=== PATIENT | male | born 1990 | race Caucasian/White ===

== ENCOUNTER 2022-06-27 10:05 | Emergency (ER) | payer OTHER ==
[~2022-06-27] VITALS: Ht 175.3 cm; Wt 109.0 kg
[2022-06-27 10:10] VITALS: BP 168/93
[2022-06-27] MEDS ORDERED: IBUP-2029 MT (10:40)
== END 2022-06-27 11:06 | disposition home or self-care (01) ==
LOC: ER 10:39
DX: S93.401A Sprain of unspecified ligament of right ankle, initial encounter (principal); W50.2XXA Accidental twist by another person, initial encounter; Y93.89 Activity, other specified; Y92.89 Other specified places as the place of occurrence of the external cause; Y99.8 Other external cause status
CPT/HCPCS: 73610; 99283

== ENCOUNTER 2022-10-03 21:29 | Emergency (ER) | payer OTHER ==
[~2022-10-03] VITALS: Ht 177.8 cm; Wt 113.0 kg
[~2022-10-03 21:29] MED LIST: IBUP-2029 MT
[2022-10-03 21:40] VITALS: TEMP 98.8; O2SAT 98
[2022-10-03 22:43] LABS: BASOPHILS % 0.8 % (0.0-2.0); HEMATOCRIT. 43.3 % (42.0-52.0); HEMOGLOBIN. 14.5 g/dL (14.0-18.0); LYMPHOCYTES % 25.9 % (20.0-50.0); MEAN CORPUSCULAR HEMOGLOBIN 29.5 pg (28.0-32.0); MEAN CORPUSCULAR VOLUME 87.7 fL (80.0-94.0); MEAN PLATELET VOLUME 7.9 fl (7.4-10.4); MONOCYTES % 8.9 % (2.0-8.0); NEUTROPHILS % 62.4 % (40.0-76.0); PLATELET 303 x1000/uL (130-400); RED BLOOD CELL COUNT 4.93 mill/uL (4.7-6.1)
[2022-10-03 22:45] LABS: CHLORIDE 101 mEq/L (98-107)
[2022-10-04] MEDS ORDERED: IBUPROFEN 400MG TABLET PO ONE (01:15)
[2022-10-04 02:43] VITALS: BP 147/96; PULSE 73; RESP 22
== END 2022-10-04 02:44 | disposition home or self-care (01) ==
LOC: ER 23:41
DX: R07.89 Other chest pain (principal); F17.210 Nicotine dependence, cigarettes, uncomplicated
CPT/HCPCS: 36415; 71045; 80053; 83880; 84484; 85025; 93005; 99285

== ENCOUNTER 2022-11-25 13:39 | Emergency (ER) | payer MEDICAID, OTHER ==
[~2022-11-25] VITALS: Ht 177.8 cm; Wt 113.4 kg
[2022-11-25 13:57] VITALS: TEMP 98.3; O2SAT 98
[2022-11-25 14:40] LABS: BASOPHILS % 0.7 % (0.0-2.0); EOSINOPHILS % 2.1 % (0.0-5.0); HEMATOCRIT. 44.4 % (42.0-52.0); HEMOGLOBIN. 15.4 g/dL (14.0-18.0); LYMPHOCYTES % 17.5 % (20.0-50.0); MEAN CORPUSCULAR HEMOGLOBIN 30.1 pg (28.0-32.0); MEAN CORPUSCULAR HGB CONC 34.7 g/dL (31.0-37.0); MONOCYTES % 6.3 % (2.0-8.0); NEUTROPHILS % 73.4 % (40.0-76.0); PLATELET 334 x1000/uL (130-400); WHITE BLOOD COUNT 10.6 x1000/uL (4.5-11.0)
[2022-11-25 15:19] LABS: CHLORIDE 105 mEq/L (98-107); INDEX HEMOLYSI 1 (1-3); INDEX ICTERIC 1 (1-4); INDEX LIPEMIC 1 (1-3); POTASSIUM 3.9 mEq/L (3.5-5.1); SODIUM 135 mEq/L (136-145)
[2022-11-25 15:28] LABS: ALANINE AMINOTRANSFERASE 112 IU/L (13-61); ALBUMIN 3.6 g/dL (3.4-5.0); ASPARTATE AMINOTRANSFERASE 65 IU/L (15-37); BILIRUBIN TOTAL 0.4 mg/dL (0.1-1.0); CALCIUM 8.5 mg/dL (8.5-10.1); CARBON DIOXIDE 30 mEq/L (21-32); CREATININE 0.8 mg/dL (0.6-1.3); GLUCOSE 96 mg/dL (70-105); PROTEIN TOTAL 8.1 g/dL (6.0-8.3); UREA NITROGEN BLOOD 8 mg/dL (7-21)
[2022-11-25 15:45] VITALS: BP 144/94; PULSE 84; RESP 16
[2022-11-25] MEDS ORDERED: IBUPROFEN 600MG TABLET PO ONE (15:45)
[2022-11-25] MEDS ORDERED: IBUP-2029 MT (16:38)
== END 2022-11-25 18:23 | disposition home or self-care (01) ==
LOC: ER 13:39
DX: R07.89 Other chest pain (principal)
CPT/HCPCS: 36415; 71045; 80053; 85025; 93005; 99285

== ENCOUNTER 2023-03-24 20:05 | Emergency (ER) | payer SELFPAY ==
[~2023-03-24] VITALS: Ht 177.8 cm; Wt 113.0 kg
[2023-03-24 20:27] VITALS: BP 144/99; PULSE 87; RESP 18; TEMP 98.7; O2SAT 98
[2023-03-24 20:59] LABS: BASOPHILS % 0.8 % (0.0-2.0); EOSINOPHILS % 2.6 % (0.0-5.0); HEMATOCRIT. 45.3 % (42.0-52.0); HEMOGLOBIN. 15.3 g/dL (14.0-18.0); LYMPHOCYTES % 24.2 % (20.0-50.0); MEAN CORPUSCULAR HEMOGLOBIN 29.8 pg (28.0-32.0); MEAN CORPUSCULAR HGB CONC 33.8 g/dL (31.0-37.0); MEAN CORPUSCULAR VOLUME 88.2 fL (80.0-94.0); MEAN PLATELET VOLUME 8.2 fl (7.4-10.4); MONOCYTES % 6.8 % (2.0-8.0); NEUTROPHILS % 65.6 % (40.0-76.0); PLATELET 275 x1000/uL (130-400); RED BLOOD CELL COUNT 5.13 mill/uL (4.7-6.1); RED CELL DISTRIBUTION WIDTH 13.1 % (11.6-14.6); WHITE BLOOD COUNT 12.2 x1000/uL (4.5-11.0)
[2023-03-24 21:06] LABS: CLARITY URINE CLEAR (CLEAR); COLOR URINE YELLOW (YELLOW); GLUCOSE URINE NEGATIVE (NEGATIVE); KETONES URINE NEGATIVE (NEGATIVE); LEUKOCYTE ESTERASE URINE NEGATIVE (NEGATIVE); NITRITE URINE NEGATIVE (NEGATIVE); OCCULT BLOOD URINE NEGATIVE (NEGATIVE); PROTEIN URINE NEGATIVE (NEGATIVE); SPECIFIC GRAVITY URINE 1.022 (1.005-1.030); UROBILINOGEN URINE 0.2 E.U./dL (0.2-1.0)
[2023-03-24 21:14] LABS: ALANINE AMINOTRANSFERASE 109 IU/L (10-49); ALBUMIN 4.4 g/dL (3.2-4.8); ASPARTATE AMINOTRANSFERASE 55 IU/L (<34); BILIRUBIN TOTAL 0.3 mg/dL (0.1-1.0); CALCIUM 9.4 mg/dL (8.7-10.4); CARBON DIOXIDE 30 mEq/L (21-32); CHLORIDE 102 mEq/L (98-107); CREATININE 0.9 mg/dL (0.6-1.3); GLUCOSE 102 mg/dL (70-105); POTASSIUM 3.6 mEq/L (3.5-5.1); PROTEIN TOTAL 8.2 g/dL (6.0-8.3); SODIUM 136 mEq/L (136-145); UREA NITROGEN BLOOD 12 mg/dL (9-23)
[2023-03-24] MEDS ORDERED: PANTOPRAZOLE 40MG DR TABLET PO ONE (21:15)
[2023-03-24] MEDS ORDERED: ACETAMINOPHEN 500MG TABLET PO ONE (21:15)
[2023-03-24] MEDS ORDERED: PANT20TA17 MT (22:18)
[2023-03-24] MEDS ORDERED: ACET-2708 MT (22:18)
[2023-03-24] MEDS ORDERED: PANTOPRAZOLE 40MG DR TABLET PO NR (23:15)
[2023-03-24] MEDS ORDERED: ACETAMINOPHEN 500MG TABLET PO NR (23:15)
== END 2023-03-24 23:23 | disposition home or self-care (01) ==
LOC: ER 20:34
DX: R10.31 Right lower quadrant pain (principal); F19.90 Other psychoactive substance use, unspecified, uncomplicated; F10.90 Alcohol use, unspecified, uncomplicated; Y90.9 Presence of alcohol in blood, level not specified
CPT/HCPCS: 36415; 74176; 80053; 81003; 85025; 99284

== ENCOUNTER 2023-08-20 13:47 | Emergency (ER) | payer MEDICAID ==
[~2023-08-20] VITALS: Ht 177.8 cm; Wt 109.0 kg
[~2023-08-20 13:47] MED LIST changes: +ACET-2708 MT; +PANT20TA17 MT
[2023-08-20 13:52] VITALS: O2SAT 99
[2023-08-20] MEDS ORDERED: DICYCLOMINE 10 MG/5 ML ORAL SYR PO STA (14:10)
[2023-08-20 14:29] LABS: BASOPHILS % 0.5 % (0.0-2.0); DIFFERENTIAL COMMENT 0; EOSINOPHILS % 1.3 % (0.0-5.0); HEMATOCRIT. 45.3 % (42.0-52.0); HEMOGLOBIN. 16.1 g/dL (14.0-18.0); LYMPHOCYTES % 20.8 % (20.0-50.0); MEAN CORPUSCULAR HEMOGLOBIN 31.5 pg (28.0-32.0); MEAN CORPUSCULAR HGB CONC 35.6 g/dL (31.0-37.0); MEAN CORPUSCULAR VOLUME 88.5 fL (80.0-94.0); MEAN PLATELET VOLUME 8.4 fl (7.4-10.4); MONOCYTES % 5.8 % (2.0-8.0); NEUTROPHILS % 71.6 % (40.0-76.0); PLATELET 341 x1000/uL (130-400); RED BLOOD CELL COUNT 5.12 mill/uL (4.7-6.1); RED CELL DISTRIBUTION WIDTH 14.3 % (11.6-14.6); WHITE BLOOD COUNT 10.7 x1000/uL (4.5-11.0)
[2023-08-20 14:43] LABS: CHLORIDE 104 mEq/L (98-107); POTASSIUM 3.5 mEq/L (3.5-5.1); SODIUM 139 mEq/L (136-145)
[2023-08-20 14:44] LABS: CALCIUM 9.6 mg/dL (8.7-10.4); CARBON DIOXIDE 27 mEq/L (21-32)
[2023-08-20] MEDS: DICYCLOMINE HCL 10MG CAPSULE PO NR (14:47)
[2023-08-20 14:49] LABS: CREATININE 0.9 mg/dL (0.6-1.3); GLUCOSE 117 mg/dL (70-105); UREA NITROGEN BLOOD 12 mg/dL (9-23)
[2023-08-20 14:51] LABS: ALANINE AMINOTRANSFERASE 30 IU/L (10-49); ALBUMIN 4.7 g/dL (3.2-4.8); ASPARTATE AMINOTRANSFERASE 23 IU/L (<34); BILIRUBIN DIRECT 0.2 mg/dL (<=3.0); BILIRUBIN TOTAL 0.6 mg/dL (0.1-1.0)
[2023-08-20 16:37] VITALS: BP 128/84; PULSE 100; RESP 18; TEMP 98.5
== END 2023-08-20 14:00 | disposition home or self-care (01) ==
LOC: ER 13:47
DX: K92.1 Melena (principal); K64.9 Unspecified hemorrhoids
CPT/HCPCS: 36415; 74176; 80048; 80076; 85025; 86850; 86900; 99284

== ENCOUNTER 2023-12-04 14:17 | Emergency (ER) | payer SELFPAY ==
[~2023-12-04] VITALS: Ht 177.8 cm; Wt 95.0 kg
[2023-12-04 14:34] VITALS: O2SAT 97
[2023-12-04 14:46] VITALS: BP 145/102; PULSE 79; RESP 18; TEMP 36.61404; O2SAT 97
[2023-12-04] MEDS ORDERED: DICYCLOMINE 10 MG/5 ML ORAL SYR PO STA (15:00)
[2023-12-04 15:10] LABS: BASOPHILS % 1.3 % (0.0-2.0); EOSINOPHILS % 2.6 % (0.0-5.0); HEMATOCRIT. 43.3 % (42.0-52.0); LYMPHOCYTES % 19.8 % (20.0-50.0); MEAN CORPUSCULAR HEMOGLOBIN 30.7 pg (28.0-32.0); MEAN CORPUSCULAR HGB CONC 34.6 g/dL (31.0-37.0); MEAN CORPUSCULAR VOLUME 88.7 fL (80.0-94.0); MEAN PLATELET VOLUME 8.4 fl (7.4-10.4); MONOCYTES % 8.2 % (2.0-8.0); NEUTROPHILS % 68.1 % (40.0-76.0); PLATELET 312 x1000/uL (130-400); RED BLOOD CELL COUNT 4.89 mill/uL (4.7-6.1); RED CELL DISTRIBUTION WIDTH 13.6 % (11.6-14.6); WHITE BLOOD COUNT 9.2 x1000/uL (4.5-11.0)
[2023-12-04 15:13] LABS: CARBON DIOXIDE 27 mEq/L (21-32); CHLORIDE 104 mEq/L (98-107); POTASSIUM 3.9 mEq/L (3.5-5.1); SODIUM 137 mEq/L (136-145)
[2023-12-04 15:14] LABS: CALCIUM 9.8 mg/dL (8.7-10.4)
[2023-12-04 15:19] LABS: CREATININE 0.8 mg/dL (0.6-1.3); GLUCOSE 102 mg/dL (70-105); UREA NITROGEN BLOOD 7 mg/dL (9-23)
[2023-12-04 15:20] LABS: ALANINE AMINOTRANSFERASE 46 IU/L (10-49)
[2023-12-04 15:21] LABS: ALBUMIN 4.4 g/dL (3.2-4.8); ASPARTATE AMINOTRANSFERASE 28 IU/L (<34); BILIRUBIN TOTAL 0.2 mg/dL (0.1-1.0); PROTEIN TOTAL 7.6 g/dL (6.0-8.3)
[2023-12-04 15:43] LABS: BILIRUBIN DIRECT < 0.1 mg/dL (<=3.0)
[2023-12-04 15:44] VITALS: TEMP 98.9
[2023-12-04] MEDS: ACETAMINOPHEN 325MG TABLET PO ONE (15:44)
[2023-12-04] MEDS: MAGNESIUM/ALUMINUM HYDROXIDE/SIMETHICONE 30ML UDC PO STA (15:44)
[2023-12-04] MEDS: DICYCLOMINE HCL 10MG CAPSULE PO NR (15:44)
[2023-12-04] MEDS ORDERED: PANT20TA17 MT (16:57)
== END 2023-12-04 17:12 | disposition home or self-care (01) ==
LOC: ER 14:17
DX: R10.11 Right upper quadrant pain (principal)
CPT/HCPCS: 36415; 76705; 80048; 80076; 85025; 99284

== ENCOUNTER 2024-03-14 21:39 | Emergency (ER) | payer SELFPAY ==
[~2024-03-14] VITALS: Ht 177.8 cm; Wt 105.0 kg
[2024-03-14 21:58] VITALS: O2SAT 98
[2024-03-14 22:02] VITALS: BP 150/84; PULSE 83; RESP 16; TEMP 98.2; O2SAT 100
[2024-03-14 23:48] LABS: EOSINOPHILS % 3.2 % (0.0-5.0); HEMATOCRIT. 44.8 % (42.0-52.0); HEMOGLOBIN. 15.5 g/dL (14.0-18.0); LYMPHOCYTES % 36.1 % (20.0-50.0); MEAN CORPUSCULAR HEMOGLOBIN 30.3 pg (28.0-32.0); MEAN CORPUSCULAR HGB CONC 34.6 g/dL (31.0-37.0); MEAN CORPUSCULAR VOLUME 87.7 fL (80.0-94.0); MEAN PLATELET VOLUME 8.1 fl (7.4-10.4); MONOCYTES % 5.2 % (2.0-8.0); NEUTROPHILS % 54.5 % (40.0-76.0); PLATELET 346 x1000/uL (130-400); RED BLOOD CELL COUNT 5.11 mill/uL (4.7-6.1); RED CELL DISTRIBUTION WIDTH 13.3 % (11.6-14.6); WHITE BLOOD COUNT 9.4 x1000/uL (4.5-11.0)
[2024-03-14 23:55] LABS: CHLORIDE 103 mEq/L (98-107); POTASSIUM 3.9 mEq/L (3.5-5.1); SODIUM 139 mEq/L (136-145)
[2024-03-14 23:56] LABS: CALCIUM 9.1 mg/dL (8.7-10.4); CARBON DIOXIDE 28 mEq/L (21-32)
[2024-03-15] LABS: PARTIAL THROMBOPLASTIN TIME 25.1 sec (23.4-31.0); PROTHROMBIN TIME 11.4 sec (9.6-11.0)
[2024-03-15 00:01] LABS: CREATININE 0.9 mg/dL (0.6-1.3); GLUCOSE 108 mg/dL (70-105); TROPONIN I HIGH SENSITIVITY 4 ng/L (3.0-53); UREA NITROGEN BLOOD 10 mg/dL (9-23)
== END 2024-03-15 01:16 | disposition left against medical advice (07) ==
LOC: ER 22:12
DX: K62.5 Hemorrhage of anus and rectum (principal); Z53.21 Procedure and treatment not carried out due to patient leaving prior to being seen by health care provider
CPT/HCPCS: 36415; 71045; 80048; 84484; 85025; 86850; 86900; 93005

== ENCOUNTER 2024-05-11 20:54 | Emergency (ER) | payer OTHER ==
[~2024-05-11] VITALS: Ht 177.8 cm; Wt 109.0 kg
[2024-05-11 20:56] VITALS: O2SAT 99
[2024-05-11 21:28] LABS: BASOPHILS % 0.9 % (0.0-2.0); EOSINOPHILS % 2.3 % (0.0-5.0); HEMATOCRIT. 41.6 % (42.0-52.0); HEMOGLOBIN. 14.4 g/dL (14.0-18.0); LYMPHOCYTES % 22.3 % (20.0-50.0); MEAN CORPUSCULAR HGB CONC 34.6 g/dL (31.0-37.0); MEAN CORPUSCULAR VOLUME 89.7 fL (80.0-94.0); MONOCYTES % 6.7 % (2.0-8.0); NEUTROPHILS % 67.8 % (40.0-76.0); PLATELET 299 x1000/uL (130-400); RED BLOOD CELL COUNT 4.64 mill/uL (4.7-6.1); RED CELL DISTRIBUTION WIDTH 14.2 % (11.6-14.6)
[2024-05-11] MEDS: MAGNESIUM/ALUMINUM HYDROXIDE/SIMETHICONE 30ML UDC PO STA (21:29)
[2024-05-11 21:33] LABS: CARBON DIOXIDE 28 mEq/L (21-32); CHLORIDE 102 mEq/L (98-107); POTASSIUM 3.7 mEq/L (3.5-5.1); SODIUM 138 mEq/L (136-145)
[2024-05-11 21:34] LABS: CALCIUM 9.2 mg/dL (8.7-10.4)
[2024-05-11 21:39] LABS: CREATININE 0.9 mg/dL (0.6-1.3); GLUCOSE 114 mg/dL (70-105); UREA NITROGEN BLOOD 8 mg/dL (9-23)
[2024-05-11 21:40] LABS: ALANINE AMINOTRANSFERASE 46 IU/L (10-49); ASPARTATE AMINOTRANSFERASE 39 IU/L (<34)
[2024-05-11 21:41] LABS: ALBUMIN 4.1 g/dL (3.2-4.8); BILIRUBIN DIRECT 0.1 mg/dL (<=3.0); BILIRUBIN TOTAL 0.4 mg/dL (0.1-1.0); PROTEIN TOTAL 7.2 g/dL (6.0-8.3)
[2024-05-11 22:59] LABS: CLARITY URINE CLEAR (CLEAR); COLOR URINE YELLOW (YELLOW); GLUCOSE URINE NEGATIVE (NEGATIVE); KETONES URINE NEGATIVE (NEGATIVE); LEUKOCYTE ESTERASE URINE NEGATIVE (NEGATIVE); NITRITE URINE NEGATIVE (NEGATIVE); OCCULT BLOOD URINE NEGATIVE (NEGATIVE); PH URINE 5.5 (4.5-8.0); PROTEIN URINE NEGATIVE (NEGATIVE); SPECIFIC GRAVITY URINE 1.018 (1.005-1.030); UROBILINOGEN URINE 0.2 E.U./dL (0.2-1.0)
[2024-05-12 00:22] VITALS: BP 138/92; PULSE 80; RESP 18; TEMP 36.8; O2SAT 99
== END 2024-05-12 00:25 | disposition home or self-care (01) ==
LOC: ER 20:54
DX: R10.9 Unspecified abdominal pain (principal); F10.90 Alcohol use, unspecified, uncomplicated; Y90.9 Presence of alcohol in blood, level not specified
CPT/HCPCS: 36415; 74176; 80048; 80076; 81003; 85025; 93005; 99284

== ENCOUNTER 2024-11-12 21:48 | Emergency (ER) | payer OTHER ==
[~2024-11-12] VITALS: Ht 177.8 cm; Wt 109.0 kg
[2024-11-12 21:59] VITALS: O2SAT 98
[2024-11-12 22:30] LABS: BASOPHILS % 0.9 % (0.0-2.0); EOSINOPHILS % 1.8 % (0.0-5.0); HEMATOCRIT. 42.1 % (42.0-52.0); HEMOGLOBIN. 14.5 g/dL (14.0-18.0); LYMPHOCYTES % 23.6 % (20.0-50.0); MEAN PLATELET VOLUME 8.4 fl (7.4-10.4); MONOCYTES % 6.9 % (2.0-8.0); NEUTROPHILS % 66.8 % (40.0-76.0); PLATELET 260 x1000/uL (130-400); RED BLOOD CELL COUNT 4.93 mill/uL (4.7-6.1); RED CELL DISTRIBUTION WIDTH 14.5 % (11.6-14.6)
[2024-11-12 22:43] LABS: CREATININE 0.9 mg/dL (0.6-1.3)
[2024-11-12 22:44] LABS: UREA NITROGEN BLOOD 12 mg/dL (9-23)
[2024-11-12] MEDS: FAMOTIDINE 20MG TABLET PO ONE (23:09)
[2024-11-12] MEDS: KETOROLAC 15MG/ML VIAL IM ONE (23:10)
[2024-11-12] MEDS: MAGNESIUM/ALUMINUM HYDROXIDE/SIMETHICONE 30ML UDC PO ONE (23:10)
[2024-11-13] LABS: TROPONIN I HIGH SENSITIVITY < 4 ng/L (3.0-53)
[2024-11-13] MEDS ORDERED: FAMO-135 MT (00:44)
[2024-11-13] MEDS ORDERED: MAG-55 MT (00:44)
[2024-11-13 01:11] VITALS: BP 150/93; PULSE 86; RESP 20; TEMP 37; O2SAT 98
== END 2024-11-13 01:12 | disposition home or self-care (01) ==
LOC: ER 21:48
DX: R10.13 Epigastric pain (principal); E87.6 Hypokalemia; F10.90 Alcohol use, unspecified, uncomplicated; Z79.899 Other long term (current) drug therapy; Y90.9 Presence of alcohol in blood, level not specified
CPT/HCPCS: 99285; 74176; 71045; 80048; 85025; 84484; 36415; 93005; 96372; J1885